=== PATIENT | male | born 1960 | race Caucasian/White ===

== ENCOUNTER 2022-11-10 06:17 | Day surgery (SDC) | payer BC ==
[~2022-11-10] VITALS: Ht 180.3 cm; Wt 98.9 kg
[~2022-11-10 06:17] MED LIST: ASPI81CH PO; ATOR10; ENOX100I SC; METO25ER; Norco 5-325 Ta1 EACH PO; PANT40 PO; WARF10 PO
[2022-11-10] MEDS ORDERED: Lopressor 25 mg25 MG PO (06:50)
[2022-11-10] MEDS ORDERED: ROSU5 PO (06:51)
--- NOTE | 2022-11-10 10:00 | NUR ---
PT TO RECOVERY ROOM POST PROCEDURE, ASSUMED CARE. PT AWAKE AND CONVERSING APPROPRIATELY; DENIES CHEST PAIN POST PROCEDURE. MONITOR SB WITH IVCD 50'S, B/P 145/85, SPO2 98% RA, AFEBRILE. R RADIAL WITH POSITIVE SWELLING AT SITE, TR BAND IN PLACE WITH 12 CC, POSITIVE SWELLING AT SITE-MANUAL PRESSURE HELD AND SECOND TR BAND PLACED WITH 14 ML AIR; RUE POSITIVE PLEUTH POST TR BANDS PLACEMENT.
--- NOTE | 2022-11-10 10:25 | NUR ---
DR BUITRAGO IN TO EVALUATE SITE. SECOND TR BAND REMOVED AND INITIAL TR BAND REPOSTIONED AND REINSTILLED WITH 12 CC AIR; RUE POSITIVE PLEUTH POST TR BAND REPOSTIONING.
--- NOTE | 2022-11-10 10:35 | NUR ---
R RADIAL SITE SOFT, NO SWELLING/HEMATOMA.
--- NOTE | 2022-11-10 13:00 | NUR ---
PT DRESSED SELF WITHOUT ISSUE, SITE UNCHANGED. TR BAND REMOVED, CLOTH DOT AND WRIST IMMOBILIZER PLACED; IV REMOVED-CANNULA INTACT. PT DECLINED SLING.
--- NOTE | 2022-11-10 13:12 | NUR ---
PT AND RECEIVED DISCHARGE INSTRUCTIONS, MED LIST AND AFTER CARE INSTRUCTIONS; VERBALIZED GOOD UNDERSTANDING. PT LEFT FACILITY VIA W/C, CONDITION STABLE.
== END 2022-11-10 13:39 | disposition home or self-care (01) ==
LOC: MHTC 06:17
DX: I25.10 Atherosclerotic heart disease of native coronary artery without angina pectoris (principal); I10 Essential (primary) hypertension; E78.5 Hyperlipidemia, unspecified
CPT/HCPCS: 76937; 93454; 99152; 99153; A9270; C1769; C1887; C1894; J1644; J2250; J3010; J7030; J7050; Q9967